=== PATIENT | female | born 1960 | race Caucasian/White ===

== ENCOUNTER 2023-08-07 17:05 | Inpatient (IN) | payer MEDICARE, OTHER ==
[~2023-08-07] VITALS: Ht 165.1 cm; Wt 88.9 kg
[2023-08-07 17:59] VITALS: BP 146/76; TEMP 98.6; O2SAT 98
[2023-08-07] MEDS ORDERED: ESCI10TA PO (18:14)
[2023-08-07] MEDS ORDERED: RISP1TAB7 PO (18:14)
[2023-08-07] MEDS ORDERED: SIMV20TA2 PO (18:14)
[2023-08-07] MEDS ORDERED: HYDR50TA62 PO (18:14)
[2023-08-07] MEDS ORDERED: LOSA100T3 PO (18:14)
[2023-08-07] MEDS ORDERED: ZOLPIDEM 5 MG TABLET PO PRN (18:30)
[2023-08-07] MEDS ORDERED: MAG HYDROX/AL HYDROX/SIMETH 30 ML LIQUID UDC PO PRN (18:30)
[2023-08-07] MEDS ORDERED: ACETAMINOPHEN 325 MG TABLET PO PRN (18:30)
[2023-08-07] MEDS ORDERED: LORAZEPAM 0.5 MG TABLET PO PRN (18:30)
[2023-08-07] MEDS ORDERED: MAGNESIUM HYDROXIDE 30 ML LIQUID UDC PO PRN (18:30)
[2023-08-07 18:46] VITALS: BP 146/76; TEMP 98.6; O2SAT 99
[2023-08-07 20:00] VITALS: BP 128/70; TEMP 98.5; O2SAT 97
[2023-08-07] MEDS: CLONAZEPAM 0.5 MG TABLET PO PRN (22:34)
[2023-08-08 08:06] VITALS: BP 135/72; TEMP 98.5; O2SAT 98
[2023-08-08 10:53] LABS: ALANINE AMINOTRANSFERASE 26 U/L (14-59); ALBUMIN 3.2 g/dL (3.4-5.0); ALKALINE PHOSPHATASE 119 U/L (50-136); ASPARTATE AMINOTRANSFERASE 24 U/L (15-37); BILIRUBIN,TOTAL 0.4 mg/dL (0.2-1.0); CALCIUM 8.8 mg/dL (8.5-10.1); CARBON DIOXIDE 26 mmol/L (21-32); CHLORIDE 103 mmol/L (98-107); CREATININE 0.8 mg/dL (0.6-1.3); GLUCOSE 105 mg/dL (74-106); POTASSIUM 4.7 mmol/L (3.5-5.1); SODIUM SERUM 139 mmol/L (136-145); UREA NITROGEN, BLOOD 10 mg/dL (7-18)
[2023-08-08] MEDS: CLONAZEPAM 0.5 MG TABLET PO PRN ×2 (11:18→16:59)
[2023-08-08 16:22] VITALS: BP 132/74; TEMP 98.4; O2SAT 98
[2023-08-08 20:00] VITALS: BP 130/69; TEMP 98; O2SAT 94
[2023-08-08] MEDS: SIMVASTATIN 20 MG TABLET PO SCH (20:40)
[2023-08-08] MEDS: risperiDONE 0.5 MG TABLET PO SCH (20:40)
[2023-08-09 08:09] VITALS: BP 120/78; TEMP 98; O2SAT 96
[2023-08-09] MEDS: ESCITALOPRAM OXALATE 10 MG TABLET PO SCH (08:49)
[2023-08-09] MEDS: LOSARTAN POTASSIUM 50 MG TABLET PO SCH (08:50)
[2023-08-09] MEDS: risperiDONE 0.5 MG TABLET PO SCH ×2 (08:50→20:26)
[2023-08-09] MEDS: MULTIVITAMINS,THERAPEUTIC TABLET PO SCH (09:12)
[2023-08-09] MEDS: FOLIC ACID 1 MG TABLET PO SCH (09:12)
[2023-08-09] MEDS: THIAMINE HCL 100 MG TABLET PO SCH (09:12)
[2023-08-09 15:35] VITALS: BP 132/76; TEMP 98.4; O2SAT 99
[2023-08-09] MEDS: CLONAZEPAM 0.5 MG TABLET PO PRN (19:13)
[2023-08-09 20:00] VITALS: BP 112/65; TEMP 98.2; O2SAT 96
[2023-08-09] MEDS: SIMVASTATIN 20 MG TABLET PO SCH (20:26)
[2023-08-09] MEDS: TEMAZEPAM 7.5 MG CAPSULE PO PRN (22:22)
[2023-08-10 07:42] LABS: BASOPHILS # (AUTO) 0.1 K/UL (0.0-0.2); BASOPHILS % (AUTO) 0.8 % (0.0-2.0); EOSINOPHILS # (AUTO) 0.2 K/uL (0.0-0.7); EOSINOPHILS % (AUTO) 2.1 % (0.0-7.0); HEMATOCRIT 39.6 % (31.2-41.9); HEMOGLOBIN 13.3 g/dL (10.9-14.3); LYMPHOCYTES # (AUTO) 3.1 K/uL (0.8-4.8); LYMPHOCYTES % (AUTO) 43.6 % (20.5-51.5); MEAN CORPUSCULAR HEMOGLOBIN 29.7 uug (24.7-32.8); MEAN CORPUSCULAR HGB CONC 34 g/dL (32.3-35.6); MEAN CORPUSCULAR VOLUME 88.2 fL (75.5-95.3); MONOCYTES # (AUTO) 0.7 K/uL (0.1-1.30); MONOCYTES % (AUTO) 10.1 % (0.0-11.0); NEUTROPHILS # (AUTO) 3.1 K/uL (1.8-8.9); NEUTROPHILS % (AUTO) 43.4 % (38.5-71.5); PLATELET COUNT (AUTO) 308 K/uL (179-408); RED BLOOD CELL COUNT(AUTO) 4.49 MIL/uL (3.63-4.92); RED CELL DISTRIBUTION WIDTH 13.1 % (12.3-17.7); WHITE BLOOD COUNT (AUTO) 7.2 K/uL (3.8-11.8)
[2023-08-10 07:53] LABS: DIFFERENTIAL COMMENT 1
[2023-08-10 08:09] LABS: THYROID STIMULATING HORMONE 1.933 mIU/mL (0.358-3.740)
[2023-08-10 08:27] LABS: ALBUMIN 2.8 g/dL (3.4-5.0); BILIRUBIN,TOTAL 0.4 mg/dL (0.2-1.0); CALCIUM 8.3 mg/dL (8.5-10.1); CREATININE 0.9 mg/dL (0.6-1.3); MAGNESIUM 2.1 mg/dL (1.8-2.4); PHOSPHOROUS 4.1 mg/dL (2.5-4.9); POTASSIUM 4.3 mmol/L (3.5-5.1); TOTAL PROTEIN, SERUM 6.2 g/dL (6.4-8.2)
[2023-08-10] MEDS ORDERED: CLONAZEPAM 0.5 MG TABLET PO PRN (08:30)
[2023-08-10 08:35] VITALS: BP 112/69; TEMP 98.2; O2SAT 99
[2023-08-10] MEDS: risperiDONE 0.5 MG TABLET PO SCH ×2 (09:50→20:46)
[2023-08-10] MEDS: THIAMINE HCL 100 MG TABLET PO SCH (09:50)
[2023-08-10] MEDS: ESCITALOPRAM OXALATE 10 MG TABLET PO SCH (09:51)
[2023-08-10] MEDS: FOLIC ACID 1 MG TABLET PO SCH (09:51)
[2023-08-10] MEDS: LOSARTAN POTASSIUM 50 MG TABLET PO SCH (09:51)
[2023-08-10] MEDS: MULTIVITAMINS,THERAPEUTIC TABLET PO SCH (09:51)
[2023-08-10 15:44] VITALS: BP 128/81; TEMP 98; O2SAT 94
[2023-08-10 20:01] VITALS: BP 131/76; TEMP 98.2; O2SAT 97
[2023-08-10] MEDS: SIMVASTATIN 20 MG TABLET PO SCH (20:46)
[2023-08-10] MEDS: CLONAZEPAM 1 MG TABLET PO PRN (22:31)
[2023-08-11 07:51] VITALS: BP 115/61; TEMP 98; O2SAT 98
[2023-08-11] MEDS: ESCITALOPRAM OXALATE 10 MG TABLET PO SCH (09:49)
[2023-08-11] MEDS: LOSARTAN POTASSIUM 50 MG TABLET PO SCH (09:49)
[2023-08-11] MEDS: FOLIC ACID 1 MG TABLET PO SCH (09:49)
[2023-08-11] MEDS: MULTIVITAMINS,THERAPEUTIC TABLET PO SCH (09:49)
[2023-08-11] MEDS: risperiDONE 0.5 MG TABLET PO SCH ×2 (09:49→19:30)
[2023-08-11] MEDS: THIAMINE HCL 100 MG TABLET PO SCH (09:49)
[2023-08-11] MEDS: CLONAZEPAM 1 MG TABLET PO PRN ×2 (10:01→18:53)
[2023-08-11 15:12] VITALS: BP 106/51; TEMP 98.2; O2SAT 97
[2023-08-11 20:07] VITALS: BP 107/60; TEMP 98.1; O2SAT 97
[2023-08-11] MEDS: risperiDONE 1 MG TABLET PO SCH (20:07)
[2023-08-11] MEDS: SIMVASTATIN 20 MG TABLET PO SCH (20:07)
[2023-08-12 08:43] VITALS: BP 137/72; TEMP 98.2; O2SAT 94
[2023-08-12] MEDS: THIAMINE HCL 100 MG TABLET PO SCH (09:25)
[2023-08-12] MEDS: FOLIC ACID 1 MG TABLET PO SCH (09:25)
[2023-08-12] MEDS: ESCITALOPRAM OXALATE 10 MG TABLET PO SCH (09:25)
[2023-08-12] MEDS: LOSARTAN POTASSIUM 50 MG TABLET PO SCH (09:26)
[2023-08-12] MEDS: risperiDONE 0.5 MG TABLET PO SCH (09:26)
[2023-08-12] MEDS: MULTIVITAMINS,THERAPEUTIC TABLET PO SCH (09:26)
[2023-08-12 15:14] VITALS: BP 153/85; TEMP 97.8; O2SAT 96
[2023-08-12] MEDS: risperiDONE 1 MG TABLET PO SCH (20:27)
[2023-08-12] MEDS: SIMVASTATIN 20 MG TABLET PO SCH (20:27)
[2023-08-12 20:28] VITALS: BP 142/65; TEMP 98.2; O2SAT 98
[2023-08-12] MEDS: TEMAZEPAM 7.5 MG CAPSULE PO PRN (21:46)
[2023-08-13 08:02] VITALS: BP 119/73; TEMP 98; O2SAT 92
[2023-08-13] MEDS: risperiDONE 0.5 MG TABLET PO SCH ×2 (09:00→20:28)
[2023-08-13] MEDS: THIAMINE HCL 100 MG TABLET PO SCH (09:17)
[2023-08-13] MEDS: ESCITALOPRAM OXALATE 10 MG TABLET PO SCH (09:17)
[2023-08-13] MEDS: MULTIVITAMINS,THERAPEUTIC TABLET PO SCH (09:17)
[2023-08-13] MEDS: LOSARTAN POTASSIUM 50 MG TABLET PO SCH (09:18)
[2023-08-13] MEDS: FOLIC ACID 1 MG TABLET PO SCH (09:18)
[2023-08-13] MEDS: CLONAZEPAM 1 MG TABLET PO PRN (09:38)
[2023-08-13] MEDS ORDERED: NICOTINE POLACRILEX 4 MG GUM-PK OF TEN BC PRN (13:00)
[2023-08-13] MEDS ORDERED: [UNRECOGNIZED DRUG - OTHER] PO PRN (14:00)
[2023-08-13 16:19] VITALS: BP 103/68; TEMP 98.2; O2SAT 98
[2023-08-13 20:00] VITALS: BP 148/85; TEMP 98.2; O2SAT 98
[2023-08-13] MEDS: SIMVASTATIN 20 MG TABLET PO SCH (20:28)
[2023-08-14 08:26] VITALS: BP 138/83; TEMP 98.2; O2SAT 98
[2023-08-14] MEDS: FOLIC ACID 1 MG TABLET PO SCH (08:46)
[2023-08-14] MEDS: THIAMINE HCL 100 MG TABLET PO SCH (08:46)
[2023-08-14] MEDS: MULTIVITAMINS,THERAPEUTIC TABLET PO SCH (08:46)
[2023-08-14] MEDS: risperiDONE 0.5 MG TABLET PO SCH ×2 (08:47→21:10)
[2023-08-14] MEDS: LOSARTAN POTASSIUM 50 MG TABLET PO SCH (08:48)
[2023-08-14] MEDS: ESCITALOPRAM OXALATE 10 MG TABLET PO SCH (09:32)
[2023-08-14 16:48] VITALS: BP 135/82; TEMP 98; O2SAT 98
[2023-08-14 20:00] VITALS: BP 157/81; TEMP 97.9; O2SAT 96
[2023-08-14] MEDS: CLONAZEPAM 1 MG TABLET PO PRN (21:11)
[2023-08-14] MEDS: SIMVASTATIN 20 MG TABLET PO SCH (21:11)
[2023-08-15 07:51] VITALS: BP 143/63; TEMP 98.2; O2SAT 98
[2023-08-15] MEDS: risperiDONE 0.5 MG TABLET PO SCH ×3 (09:08→21:20)
[2023-08-15] MEDS: FOLIC ACID 1 MG TABLET PO SCH (09:08)
[2023-08-15] MEDS: THIAMINE HCL 100 MG TABLET PO SCH (09:08)
[2023-08-15] MEDS: ESCITALOPRAM OXALATE 10 MG TABLET PO SCH (09:08)
[2023-08-15] MEDS: MULTIVITAMINS,THERAPEUTIC TABLET PO SCH (09:08)
[2023-08-15] MEDS: LOSARTAN POTASSIUM 50 MG TABLET PO SCH (09:09)
[2023-08-15 16:13] VITALS: BP 117/64; TEMP 98; O2SAT 98
[2023-08-15 20:08] VITALS: BP 148/86; TEMP 98.1; O2SAT 97
[2023-08-15] MEDS: SIMVASTATIN 20 MG TABLET PO SCH (21:06)
[2023-08-15] MEDS: CLONAZEPAM 1 MG TABLET PO PRN (22:12)
[2023-08-16 08:00] VITALS: BP 147/83; TEMP 98.2; O2SAT 94
[2023-08-16] MEDS: LOSARTAN POTASSIUM 50 MG TABLET PO SCH (09:32)
[2023-08-16] MEDS: THIAMINE HCL 100 MG TABLET PO SCH (09:33)
[2023-08-16] MEDS: FOLIC ACID 1 MG TABLET PO SCH (09:33)
[2023-08-16] MEDS: MULTIVITAMINS,THERAPEUTIC TABLET PO SCH (09:33)
[2023-08-16] MEDS: ESCITALOPRAM OXALATE 10 MG TABLET PO SCH (09:33)
[2023-08-16 16:00] VITALS: BP 91/58; TEMP 97.9; O2SAT 96
[2023-08-16 19:42] VITALS: BP 101/66; TEMP 98.1; O2SAT 96
[2023-08-16] MEDS: SIMVASTATIN 20 MG TABLET PO SCH (20:15)
[2023-08-16] MEDS: risperiDONE 0.5 MG TABLET PO SCH (20:15)
[2023-08-17 08:00] VITALS: BP 126/63; TEMP 98; O2SAT 98
[2023-08-17] MEDS: ESCITALOPRAM OXALATE 10 MG TABLET PO SCH (08:58)
[2023-08-17] MEDS: FOLIC ACID 1 MG TABLET PO SCH (08:58)
[2023-08-17] MEDS: MULTIVITAMINS,THERAPEUTIC TABLET PO SCH (08:58)
[2023-08-17] MEDS: risperiDONE 0.5 MG TABLET PO SCH ×2 (08:58→20:32)
[2023-08-17] MEDS: LOSARTAN POTASSIUM 50 MG TABLET PO SCH (08:59)
[2023-08-17] MEDS: THIAMINE HCL 100 MG TABLET PO SCH (08:59)
[2023-08-17] MEDS: SIMVASTATIN 20 MG TABLET PO SCH (20:32)
[2023-08-18 08:32] VITALS: BP 121/76; TEMP 98.1; O2SAT 97
[2023-08-18] MEDS: THIAMINE HCL 100 MG TABLET PO SCH (08:53)
[2023-08-18] MEDS: FOLIC ACID 1 MG TABLET PO SCH (08:53)
[2023-08-18] MEDS: ESCITALOPRAM OXALATE 10 MG TABLET PO SCH (08:53)
[2023-08-18] MEDS: MULTIVITAMINS,THERAPEUTIC TABLET PO SCH (08:53)
[2023-08-18] MEDS: LOSARTAN POTASSIUM 50 MG TABLET PO SCH (08:54)
[2023-08-18] MEDS: risperiDONE 0.5 MG TABLET PO SCH ×2 (08:54→20:38)
[2023-08-18 16:31] VITALS: BP 142/68; TEMP 97; O2SAT 95
[2023-08-18] MEDS: SIMVASTATIN 20 MG TABLET PO SCH (20:38)
[2023-08-18] MEDS: CLONAZEPAM 1 MG TABLET PO PRN (20:38)
[2023-08-18 21:51] VITALS: BP 143/77; TEMP 98.5; O2SAT 98
[2023-08-19 08:46] VITALS: BP 132/67; TEMP 80; O2SAT 98
[2023-08-19] MEDS: risperiDONE 0.5 MG TABLET PO SCH (08:49)
[2023-08-19] MEDS: THIAMINE HCL 100 MG TABLET PO SCH (08:49)
[2023-08-19] MEDS: FOLIC ACID 1 MG TABLET PO SCH (08:49)
[2023-08-19] MEDS: MULTIVITAMINS,THERAPEUTIC TABLET PO SCH (08:49)
[2023-08-19 08:50] VITALS: BP 132/67
[2023-08-19] MEDS: ESCITALOPRAM OXALATE 10 MG TABLET PO SCH (08:50)
[2023-08-19] MEDS: LOSARTAN POTASSIUM 50 MG TABLET PO SCH (08:50)
== END 2023-08-19 12:45 | DRG 885 ==
LOC: ER 17:08 → GPS 17:40
PROVIDERS: ADMIT Psychiatry & Neurology Psychiatry; ATTEND Internal Medicine
DX: F29 Unspecified psychosis not due to a substance or known physiological condition (principal); Z59.02 Unsheltered homelessness; F39 Unspecified mood [affective] disorder; E66.9 Obesity, unspecified; Z68.32 Body mass index [BMI] 32.0-32.9, adult; Z86.79 Personal history of other diseases of the circulatory system; E78.5 Hyperlipidemia, unspecified; Z79.899 Other long term (current) drug therapy
CPT/HCPCS: 36415; 70030-TC; 71045; 83735; 84100; 84443; 85025

== ENCOUNTER 2024-06-05 14:30 | Inpatient (IN) | payer MEDICARE, OTHER ==
[~2024-06-05] VITALS: Ht 162.6 cm; Wt 93.9 kg
[~2024-06-05 14:30] MED LIST: HYDR50TA62 PO; LOSA100T3 PO; SIMV20TA2 PO
[2024-06-05] MEDS ORDERED: RISP2TAB85 PO (14:47)
[2024-06-05] MEDS ORDERED: LOSA100T31 PO (14:47)
[2024-06-05] MEDS ORDERED: ESCI10TA PO (14:47)
[2024-06-05] MEDS ORDERED: CLON1TAB12 PO (14:47)
[2024-06-05] MEDS ORDERED: SIMV-46 PO (14:47)
[2024-06-05 15:09] LABS: *BILIRUBIN,URIN NEGATIVE (NEGATIVE); *BLOOD, URINE NEGATIVE (NEGATIVE); *CLARITY,URINE CLEAR (CLEAR); *COLOR,URINE YELLOW (YELLOW); *KETONES,URINE NEGATIVE (NEGATIVE); *PROTEIN,URINE NEGATIVE (NEGATIVE); *UROBILINOGEN,URINE 0.2 E.U./dl (NORMAL); LEUKOCYTE ESTERASE ,URINE NEGATIVE (NEGATIVE); NITRITE, URINE NEGATIVE (NEGATIVE); UGLUCOSE NEGATIVE (NEGATIVE)
[2024-06-05 15:18] LABS: BASOPHILS # (AUTO) 0.1 K/UL (0.0-0.2); BASOPHILS % (AUTO) 0.9 % (0.0-2.0); EOSINOPHILS # (AUTO) 0.2 K/uL (0.0-0.7); EOSINOPHILS % (AUTO) 1.4 % (0.0-7.0); HEMATOCRIT 48.9 % (31.2-41.9); HEMOGLOBIN 16.4 g/dL (10.9-14.3); LYMPHOCYTES # (AUTO) 3.8 K/uL (0.8-4.8); LYMPHOCYTES % (AUTO) 29.3 % (20.5-51.5); MEAN CORPUSCULAR HEMOGLOBIN 30.2 uug (24.7-32.8); MEAN CORPUSCULAR HGB CONC 34 g/dL (32.3-35.6); MEAN CORPUSCULAR VOLUME 90.4 fL (75.5-95.3); MONOCYTES # (AUTO) 0.9 K/uL (0.1-1.30); MONOCYTES % (AUTO) 6.7 % (0.0-11.0); NEUTROPHILS # (AUTO) 7.9 K/uL (1.8-8.9); NEUTROPHILS % (AUTO) 61.7 % (38.5-71.5); PLATELET COUNT (AUTO) 325 K/uL (179-408); RED BLOOD CELL COUNT(AUTO) 5.41 MIL/uL (3.63-4.92); RED CELL DISTRIBUTION WIDTH 14.2 % (12.3-17.7); WHITE BLOOD COUNT (AUTO) 12.9 K/uL (3.8-11.8)
[2024-06-05 15:47] LABS: CARBON DIOXIDE 28 mmol/L (21-32); CHLORIDE 100 mmol/L (98-107); CREATININE 0.9 mg/dL (0.6-1.3); GLUCOSE 121 mg/dL (74-106); POTASSIUM 3.9 mmol/L (3.5-5.1); SODIUM SERUM 138 mmol/L (136-145); UREA NITROGEN, BLOOD 15 mg/dL (7-18)
[2024-06-05 15:49] LABS: AMMONIA 28 umol/L (11-32)
[2024-06-05 15:52] LABS: ETHANOL < 3 MG/DL (0-10)
[2024-06-05 15:55] LABS: ALANINE AMINOTRANSFERASE 74 U/L (14-59); ALBUMIN 3.5 g/dL (3.4-5.0); ALKALINE PHOSPHATASE 143 U/L (50-136); ASPARTATE AMINOTRANSFERASE 47 U/L (15-37); BILIRUBIN,DIRECT 0.1 mg/dL (0.0-0.2); BILIRUBIN,TOTAL 0.3 mg/dL (0.2-1.0)
[2024-06-05 16:04] LABS: ACETAMINOPHEN < 2.0 ug/mL (10-30)
[2024-06-05 16:10] LABS: *AMPHETAMINE, URINE NEGATIVE (NEGATIVE); *BARBITURATE, URINE NEGATIVE (NEGATIVE); *BENZODIAZEPINE, URINE NEGATIVE (NEGATIVE); *CANNABINOID, URINE NEGATIVE (NEGATIVE); *COCCAINE, URINE NEGATIVE (NEGATIVE); *OPIATE, URINE NEGATIVE (NEGATIVE); *PHENCYCLIDINE SCREEN,URINE NEGATIVE (NEGATIVE); FENTANYL, URINE NEGATIVE (NEGATIVE)
[2024-06-05] MEDS ORDERED: LORAZEPAM 0.5 MG TABLET ONE (17:45)
[2024-06-05] MEDS: LORAZEPAM 0.5 MG TABLET PO ONE (17:46)
[2024-06-05 20:45] VITALS: BP 141/87; TEMP 97.8; O2SAT 98
[2024-06-05] MEDS: BLOOD SUGAR DIAGNOSTIC 1 EACH STRIP VI ONE (20:45)
[2024-06-05] MEDS ORDERED: MAGNESIUM HYDROXIDE 30 ML LIQUID UDC PO PRN (20:45)
[2024-06-05] MEDS ORDERED: MAG HYDROX/AL HYDROX/SIMETH 30 ML LIQUID UDC PO PRN (20:45)
[2024-06-05] MEDS ORDERED: TEMAZEPAM 7.5 MG CAPSULE PO PRN ×2 (20:45)
[2024-06-05] MEDS: CLONAZEPAM 0.5 MG TABLET PO PRN (22:50)
[2024-06-06] MEDS: NICOTINE 14 MG/24HR PATCH TD SCH (09:00)
[2024-06-06 20:00] VITALS: BP 128/60; TEMP 98.5; O2SAT 95
[2024-06-06] MEDS: SIMVASTATIN 20 MG TABLET PO SCH (20:32)
[2024-06-06] MEDS: QUETIAPINE FUMARATE 25 MG TABLET PO SCH (20:32)
[2024-06-06] MEDS: risperiDONE 1 MG TABLET PO SCH (20:35)
[2024-06-06] MEDS: ACETAMINOPHEN 325 MG TABLET PO PRN (22:17)
[2024-06-07 07:04] LABS: BASOPHILS % (AUTO) 0.5 % (0.0-2.0); EOSINOPHILS # (AUTO) 0.2 K/uL (0.0-0.7); HEMATOCRIT 42.5 % (31.2-41.9); HEMOGLOBIN 14.6 g/dL (10.9-14.3); LYMPHOCYTES # (AUTO) 3.4 K/uL (0.8-4.8); LYMPHOCYTES % (AUTO) 45.5 % (20.5-51.5); MEAN CORPUSCULAR HEMOGLOBIN 30.7 uug (24.7-32.8); MEAN CORPUSCULAR HGB CONC 34 g/dL (32.3-35.6); MEAN CORPUSCULAR VOLUME 89.2 fL (75.5-95.3); MONOCYTES # (AUTO) 0.8 K/uL (0.1-1.30); NEUTROPHILS # (AUTO) 3.2 K/uL (1.8-8.9); PLATELET COUNT (AUTO) 277 K/uL (179-408); RED BLOOD CELL COUNT(AUTO) 4.76 MIL/uL (3.63-4.92); RED CELL DISTRIBUTION WIDTH 14.1 % (12.3-17.7); WHITE BLOOD COUNT (AUTO) 7.5 K/uL (3.8-11.8)
[2024-06-07 07:14] LABS: DIFFERENTIAL COMMENT 1
[2024-06-07 08:16] VITALS: BP 110/75; TEMP 98; O2SAT 98
[2024-06-07] MEDS ORDERED: Medication Not On Formulary EA (Losartan Potassium 1 TAB) PO SCH (09:00)
[2024-06-07] MEDS: ESCITALOPRAM OXALATE 10 MG TABLET PO SCH (09:48)
[2024-06-07] MEDS: LOSARTAN POTASSIUM 50 MG TABLET PO SCH (09:49)
[2024-06-07] MEDS: CLONAZEPAM 0.5 MG TABLET PO PRN (09:55)
[2024-06-07 15:51] VITALS: BP 166/97; TEMP 98; O2SAT 98
[2024-06-07 20:26] VITALS: BP 142/82; TEMP 97.9; O2SAT 96
[2024-06-08 08:03] VITALS: BP 166/85; TEMP 98; O2SAT 98
[2024-06-08 15:37] VITALS: BP 147/80; TEMP 98; O2SAT 98
[2024-06-08 20:10] VITALS: BP 136/76; TEMP 97.9; O2SAT 96
[2024-06-08] MEDS: QUETIAPINE FUMARATE 100 MG TABLET PO SCH (20:33)
[2024-06-08] MEDS ORDERED: QUETIAPINE FUMARATE 25 MG TABLET PO SCH (21:00)
[2024-06-09 08:00] VITALS: BP 158/83; TEMP 98.5; O2SAT 96
[2024-06-09 16:08] VITALS: BP 136/80; TEMP 98.9; O2SAT 96
[2024-06-09 20:15] VITALS: BP 142/78; TEMP 98.4; O2SAT 95
[2024-06-10 07:52] VITALS: BP 140/75; TEMP 98.3; O2SAT 98
[2024-06-10 15:52] VITALS: BP 139/82; TEMP 97.9; O2SAT 99
[2024-06-10] MEDS: QUETIAPINE FUMARATE 100 MG TABLET PO SCH (20:19)
[2024-06-10 21:46] VITALS: BP 139/70; TEMP 98; O2SAT 98
[2024-06-11 08:00] VITALS: BP 127/68; TEMP 98.2; O2SAT 96
[2024-06-11 15:09] VITALS: BP 125/57; TEMP 97.8; O2SAT 96
[2024-06-11 20:00] VITALS: BP 121/80; TEMP 98.5; O2SAT 95
[2024-06-12 10:58] VITALS: BP 130/73; TEMP 98; O2SAT 96
[2024-06-12 15:43] VITALS: BP 127/67; TEMP 99.7; O2SAT 96
[2024-06-12 20:06] VITALS: BP 130/68; TEMP 98.4; O2SAT 95
[2024-06-13 07:59] VITALS: BP 147/68; TEMP 98; O2SAT 96
[2024-06-13 15:23] VITALS: BP 126/82; TEMP 98; O2SAT 96
[2024-06-13 19:49] VITALS: BP 118/64; TEMP 97.9; O2SAT 95
[2024-06-14 09:05] VITALS: BP 137/81; TEMP 98; O2SAT 98
[2024-06-14 15:31] VITALS: BP 125/81; TEMP 98; O2SAT 98
[2024-06-14 20:13] VITALS: BP 125/64; TEMP 98.1; O2SAT 96
[2024-06-15 08:44] VITALS: BP 142/82; TEMP 98; O2SAT 96
[2024-06-15 08:52] VITALS: BP 142/82
[2024-06-15] MEDS ORDERED: SIMV20TA2 PO (10:21)
[2024-06-15] MEDS ORDERED: LOSA100T31 PO (10:21)
== END 2024-06-15 11:45 | DRG 885 ==
LOC: ER 14:30 → GPS 20:29
PROVIDERS: ADMIT Psychiatry & Neurology Psychiatry; ATTEND Nurse Practitioner Acute Care
DX: F29 Unspecified psychosis not due to a substance or known physiological condition (principal); Z59.01 Sheltered homelessness; Z68.35 Body mass index [BMI] 35.0-35.9, adult; E66.9 Obesity, unspecified; E78.5 Hyperlipidemia, unspecified; Z79.899 Other long term (current) drug therapy; N63.10 Unspecified lump in the right breast, unspecified quadrant; D72.829 Elevated white blood cell count, unspecified; I10 Essential (primary) hypertension; F41.9 Anxiety disorder, unspecified; R41.89 Other symptoms and signs involving cognitive functions and awareness; F31.9 Bipolar disorder, unspecified; F20.9 Schizophrenia, unspecified
CPT/HCPCS: 36415; 70450; 71045; 84484; 85025; 85730; 93005; G0480